=== PATIENT | male | born 1965 | race Caucasian/White ===

== ENCOUNTER 2025-03-01 09:38 | Observation (INO) ==
--- NOTE | 2025-02-16 11:39 | Anesthesiology Consultation ---
Date of Service February 16, 2025 Assessment & Plan (1) Encounter for pre-operative examination: - Per hammer smith on 02/16/25: No known infectious disease contacts, current infectious disease symptoms in past 10 days or COVID positive test result in the past 30 days. Chart Review Chart Review: Acceptable Risk for Surgery and Patient NOT seen in Pre Admission Testing History Surgery Operation Date: 03/01/25 07:30 Proposed Procedures p Robotic Assisted Laparoscopic Radical Retropubic Prostatectomy, Possible Open, Possible Pelvic Lymph Node Dissection - Adan Tenorio MD Height/Weight Height: 5 ft 10 in Weight: 81.647 kg Allergies Allergy/AdvReac Type Severity Reaction Status Date / Time No Known Allergies Allergy Verified 02/16/25 10:54 Medications Home Medications Medication Instructions Recorded Confirmed Last Taken sildenafil 100 mg tablet 100 mg PO DAILY PRN sexual 06/07/24 02/16/25 Unknown activity #20 tabs gemfibrozil 600 mg tablet 600 mg PO BID 12/20/24 02/16/25 Unknown lisinopril 2.5 mg tablet 2.5 mg PO BID 12/20/24 02/16/25 Unknown krill 1 cap PO DAILY 02/16/25 02/16/25 Unknown [id number] 300 mg-90 mg-24 mg-50 mg capsule (krill oil) multivitamin 1 tab PO QAM 02/16/25 02/16/25 Unknown Past Medical History Medical History (Updated 02/16/25 @ 11:36 by Nasreen Triana PA-C) Hypertension Hypertriglyceridemia Prostate cancer dx ~2018, was monitoring with [facility] urology, and recently switched to [facility] [place] [facility] Past Family History Family History Other No family history of adverse response to anesthesia Past Surgical History Surgical History History of colonoscopy Hx of prostate biopsy with sedation Hx of vasectomy under local Social History Smoking Status: Never smoker Do You Dip or Chew Tobacco: No Hx Alcohol Use: Yes Alcohol type: beer alcohol intake frequency: 0-2 drinks per day Hx Substance Use: No substance use type: does not use Testing Laboratory Results 02/14/25 WBC: 4.7 H/H: 13/39 PLATELETS: 257,000 SODIUM: 134 POTASSIUM: 4.3 CHLORIDE: 101 CO2: 26 BUN: 10 CREATININE: 0.8 GLUCOSE: 118 Urine culture: no growth Electrocardiogram Date: 02/04/25 Sinus rhythm, rate 78 bpm Chest X-Ray Date: 02/04/25 No acute cardiopulmonary disease.
[~2025-03-01 09:38] MED LIST: DEXAMETHASONE SOD INJ 4 MG/ML VIAL ONE; GLYCOPYRROLATE 0.2 MG/ML VIAL ONE; KETAMINE HCL 10MG/ML SYR ONE; LIDOCAINE 2% 2 ML VIAL/AMP(20MG/ML) INFIL ONE; MIDAZOLAM HCL 1 MG/ML 2ML VIAL ONE; NOREPINEPHRINE BITARTRATE 1 MG/ML 4 ML VIAL IV ONE; ONDANSETRON INJ 2 MG/ML 2 ML VIAL ONE; PROPOFOL IV EMULSION 10 MG/ML 20 ML VIAL IV ONE; ROCURONIUM BROMIDE 10 MG/ML 5 ML VIAL IV ONE; SUGAMMADEX SODIUM 200 MG/2 ML VIAL IV ONE
[2025-03-01] MEDS: LACTATED RINGER'S 1,000 ML IV SCH ×2 (10:14→17:06)
[2025-03-01] MEDS: HEPARIN SOD 5,000 UNIT/0.5 ML VIAL SQ SCH ×2 (10:14→21:52)
--- NOTE | 2025-03-01 10:43 | History & Physical Bridge Note ---
Date of Service March 01, 2025 History & Physical Bridge Note I have examined the patient, reviewed the History & Physical and in the interval since the performance of the History & Physical I have noted the following changes of clinical significance: no changes noted
[2025-03-01] MEDS ORDERED: ATROPINE SULFATE 0.1 MG/ML 10ML SYR IV PRN (11:29)
[2025-03-01] MEDS ORDERED: ONDANSETRON INJ 2 MG/ML 2 ML VIAL IV PRN ×2 (11:29→16:28)
[2025-03-01] MEDS ORDERED: NOREPINEPHRINE BITARTRATE 1 MG/ML 4 ML VIAL IV ONE (12:02)
[2025-03-01] MEDS ORDERED: ROCURONIUM BROMIDE 10 MG/ML 5 ML VIAL IV ONE ×3 (12:02→13:32)
[2025-03-01] MEDS: SURGICEL ABSORB HEMOSTAT 2IN X 14IN TOP ONE (12:48)
[2025-03-01] MEDS: BUPIVACAINE 0.5 % 5 MG/1 ML MPF 30ML VIAL ONE (14:36)
[2025-03-01] MEDS: BUPIVACAINE LIPOSOME 1.3% 266 MG/20 ML VIAL ONE (14:37)
--- NOTE | 2025-03-01 15:04 | Operative Report ---
[facility] Post Operative Report Pre & Post Diagnosis Operation Date: 03/01/25 11:00 Pre-Op Diagnosis: Malignant Neoplasm of Prostate Post-Op Diagnosis: Malignant Neoplasm of Prostate I identified the patient and participated in the time-out.: Yes Procedure Operation Date: 03/01/25 11:00 Actual Procedures p Robotic Assisted Laparoscopic Radical Retropubic Prostatectomy, Pelvic Lymph Node Dissection(Not Applicable) - Adan Tenorio MD Surgeon Adan Tenorio MD Associate Professor Of Geography Lena Stephenson Estimated Blood Loss 100 Findings Consistent with Post-Op Diagnosis Specimens 1. Periprostatic fat 2. Left pelvic lymph nodes 3. Right pelvic lymph nodes 4. Prostate and seminal vesicles 5/6/7. Bladder neck - posterior, left, and distal Description of Procedure The patient was identified in the preoperative holding area, appropriate informed consents were reviewed and completed, and he was transported to the operating suite. Subcutaneous heparin was administered in the pre-operative holding area. Upon arrival in the operating suite, he received appropriate antibiotics and general anesthesia and was positioned supine and prepped in sterile fashion. A Mckeon catheter was inserted in the sterile field. A Veress needle was passed per umbilicus with uniform insufflation of the abdomen to 15mmHg. He was placed in 26 degrees of Trendelenburg. A periumbilical incision was then made to accommodate a robotic port and entry was made using a visual obturator. Inspection of the abdomen was carried out, and there was no evidence of traumatic entry or injury secondary to the Veress needle. After confirming a clear anterior abdominal wall, ports were subsequently placed in standard robotic prostatectomy fashion without incident. To begin the robotic portion of the case, the left lateral aspect of the sigmoid was mobilized off of the left pelvic side wall to allow the pouch of Jonathan to be appropriately visualized. I then made an incision in the pouch of Jonathan, overlying the seminal vesicles. Both SVs as well as the ampullae of the vasa were entirely dissected, with the vasa transected 3cm from the prostate. Of note, there was somewhat of a fibrotic reaction around the vasa and SV's which took a bit of meticulous dissection. Dissection posterior to the prostate was completed, splitting Denonvilliers' fascia. I did not quite reach the apex of the prostate but was able to create the initial plane. The medial umbilical ligaments were then controlled with bipolar electrocautery just inferior to the umbilicus. Following cauterization, they were divided utilizing monopolar cautery. A peritoneal incision was carried from this location to the medial aspect of the internal inguinal rings bilaterally with care to avoid opening through the ring. This incision was concluded when the vas deferens was reached. Dissection of the bladder and prostate off of the posterior aspect of the pubic arch was completed allowing full visualization of the prostate. The fat overlying the prostate was removed en bloc and passed off the table as a specimen labeled "periprostatic fat". The endopelvic fascia was cleared during this portion of the procedure, and subsequently opened - first on the right and then the left. The incision through the endopelvic fascia began near the prostate-bladder junction and was carried to the apex with extreme care to preserve all lateral levator musculature as well as the periurethral musculature and sphincter complex. I additionally preserved the puboprostatic l igaments. I then controlled the DVC with a 2-0 V-lock suture in overlapping/figure of 8 fashion. The lymph node dissection was then conducted. External iliac vessels were identified on the pelvic side wall. The packet of fat and lymphatic tissue that resides just under the iliac vein was elevated and off of the vein with a split and roll technique. The packet was dissected laterally to the circumflex vein and distally to the obturator nerve which was preserved. The proximal aspect of the packet was carried towards the bifurcation of the iliac vessels. A combination of monopolar and bipolar cautery were used to assist with control. After completing the dissection on both sides, the packets were collected and passed off of the table as specimens labeled "pelvic lymph nodes". My attention then returned to the prostate, with identification of the bladder neck aided by gentle traction on the Mckeon catheter and lateral to medial pressure at the presumed level of the bladder neck with the robotic instruments. An anterior cystotomy was made, the Mckeon balloon deflated and the catheter guided through the incision to allow anterior retraction. I attempted to preserve maximal bladder neck musculature as I circumferentially dissected around the bladder neck. After incision through the posterior aspect of the mucosa, the dissection was carried through detrusor muscle until the bilateral ampullae of the vasa were identified. The previously dissected vasa and SVs were brought through the incision and used to elevated the prostate anteriorly. Of note, there was some thickness to the posterior bladder neck that raise some concern that the prostate tissue had been left behind attached to the bladder neck. Initially I carried my dissection below the prostate and into an appropriate plane, however, this was noted with the plan to return to this prior to completing the anastomosis. An incision in the lateral prostatic fascia was then made bilaterally to faci litate control of the vascular pedicles and preservation of the nerve bundles. Vasculature running along the posterior/lateral aspect of the prostate was preserved as well as the tissue containing the nerves. The pedicles were then controlled with a series of Weck clips. The nerve spare was quite successful. The apical attachments of the prostate were remaining at that stage. The DVC was divided after control with bipolar cautery over the prostate. Continuous inspection from anterior and lateral views allowed me to closely follow the apical contour of the prostate and maximally preserve urethral length and tissue. The prostate was entirely freed at that point, and collected in an EndoCatch bag before being moved out of the field of vision. Hemostasis was obtained with directed suture ligation of any bleeding vessels along the neurovascular bundles utilizing 3-0 v-Lock suture. At this point, I was able to have a further inspection utilizing both the 0 and 30 degree lens of the posterior aspect of the bladder neck. There was some thickening of this tissue which implies to me that there may be some prostate tissue still adherent to the bladder itself. I carefully dissected this tissue off of the underlying detrusor muscle with very cautious dissection and inspection continuously to ensure that we were not encroaching into bladder mucosa or the ureters. Ultimately, this came off as 3-4 separate pieces. Although I initially labeled this as distal bladder neck margin, left bladder neck, posterior bladder neck,, further posterior bladder neck, I am uncertain that the exact locations are particularly relevant. At the conclusion of the resection of this tissue I felt that all suspicious prostate tissue had been removed. Anastomosis of the bladder and urethra was completed utilizing a double armed V-Lock stitch. The anastomosis came together extremely well. A new Mckeon catheter was inserted and the anastomosis tested with irrigation. There was no evidence of leak. A vanessa style stitch was placed bilaterally to functionally marsupialize the area of the lymph node dissection. The robot was undocked, the specimen extracted through expansion of the guillaume-um bilical camera port. The fascia was closed with a series of 0-PDS figure of 8 stitches. All skin incisions were closed with 4-0 monocryl. All incisions and muscle layers were anesthesized with a combination of marcaine and Exparel. The case was concluded and the patient taken to the PACU in stable condition. Lena Stephenson assisted from incision to closure. I attest to the content of the Intraoperative Record and any orders documented therein. Any exceptions are noted below.
--- NOTE | 2025-03-01 15:31 | Anesthesiology Progress Note ---
Date of Service March 01, 2025 Anesthesia Post Procedure Vital Signs Vital Signs: Temp Pulse Pulse Resp BP Pulse Ox O2 Del Method 03/01/25 15:20 87 18 161/94 H 94 Nasal Cannula 03/01/25 15:10 83 18 163/92 H 96 Oxymask 03/01/25 15:00 87 14 144/92 H 100 Oxymask 03/01/25 14:52 97.9 F 90 16 161/89 H 100 Oxymask 03/01/25 09:55 98.2 F 88 20 192/93 H 98 Room Air O2 Flow Rate 03/01/25 15:20 2 03/01/25 15:10 2 03/01/25 15:00 4 03/01/25 14:52 6 03/01/25 09:55 Pain Intensity Abdomen: Pain Intensity: 4 Transfer of Care Handoff Completed per policy Notes Mental Status: alert / awake / arousable and participated in evaluation Patient Amnestic to Procedure: Yes Nausea / Vomiting: adequately controlled Pain: adequately controlled Airway Patency, RR, SpO2: stable & adequate BP & HR: stable & adequate Hydration State: stable & adequate Anesthetic Complications: no major complications apparent and Pt Satisfied with anesthetic care
[2025-03-01 15:57] LABS: Hematocrit (blood only) 39.4 % (42.0-52.0); Hemoglobin 13.6 g/dL (14.0-18.0); Mean Corpuscular Hemoglobin 32.5 pg (25.0-34.0); Mean Corpuscular Volume 94.3 fL (80.0-100.0); Platelet Count 231 K/uL (130-400); RDW Standard Deviation 39.5 fL (36.4-46.3); Red Blood Count 4.18 M/uL (4.70-6.10); White Blood Count 11.33 K/ul (4.8-10.8)
[2025-03-01 16:14] LABS: Anion Gap 7.0 (3-11); Blood Urea Nitrogen 12.0 mg/dl (6-23); Calcium 8.8 mg/dl (8.6-10.3); Carbon Dioxide 27.0 mmol/L (21-32); Chloride 101.0 mmol/L (98-107); Creatinine Clr Calc Pharmacy 95.4 ml/min; Glucose 153.0 mg/dl (70-99(Fasting)); Immature Granulocytes # (auto) 0.04 K/uL (0.01-0.20); Immature Granulocytes % (auto) 0.4 %; Potassium 4.6 mmol/L (3.5-5.1); Sodium 135.0 mmol/L (136-145)
[2025-03-01] MEDS: MoRPHine SULFATE 2 MG/ML CARP IV PRN (16:57)
[2025-03-01] MEDS: DOCUSATE SODIUM 100 MG CAP PO SCH (21:52)
[2025-03-02 03:25] VITALS: RESP 16; O2SAT 97
[2025-03-02 06:59] LABS: Hematocrit (blood only) 34.4 % (42.0-52.0); Hemoglobin 12.1 g/dL (14.0-18.0); Immature Granulocytes # (auto) 0.03 K/uL (0.01-0.20); Immature Granulocytes % (auto) 0.4 %; Mean Corpuscular Hemoglobin 33.2 pg (25.0-34.0); Mean Corpuscular Volume 94.5 fL (80.0-100.0); Platelet Count 221 K/uL (130-400); RDW Standard Deviation 39.8 fL (36.4-46.3); Red Blood Count 3.64 M/uL (4.70-6.10); White Blood Count 7.56 K/ul (4.8-10.8)
[2025-03-02 07:31] LABS: Anion Gap 7.0 (3-11); Blood Urea Nitrogen 11.0 mg/dl (6-23); Calcium 8.5 mg/dl (8.6-10.3); Carbon Dioxide 28.0 mmol/L (21-32); Chloride 100.0 mmol/L (98-107); Creatinine Clr Calc Pharmacy 90.1 ml/min; Glucose 113.0 mg/dl (70-99(Fasting)); Potassium 4.4 mmol/L (3.5-5.1); Sodium 135.0 mmol/L (136-145)
--- NOTE | 2025-03-02 08:28 | Urology Progress Note ---
Date of Service March 02, 2025 Assessment & Plan (1) Prostate cancer: Plan Prostate cancer status post prostatectomy yesterday Ambulate DC home later today Progressing appropriately Admission and Anticipated Discharge Date Admission Date: March 01, 2025 Subjective No major issues or night He is ambulatory Is feeling relatively well Has not yet passed flatus and feels some pressure in the rectal area that is his current biggest complaint Labs are stable Urine output okay Physical Exam Physical Exam: Abdomen soft, incisions appropriate Urine clear Results & Data Vital Signs (Past 12 Hours) Vital Signs Temp Pulse Resp BP BP Pulse Ox O2 Del Method 03/02/25 07:11 36.7 C 74 16 150/78 H 97 Room Air 03/02/25 03:24 36.7 C 77 16 135/74 97 Room Air 03/01/25 23:46 36.8 C 81 20 136/81 96 Room Air 03/01/25 21:50 37.0 C 66 16 156/79 H 96 Room Air PG Care Time/CCT Total # of Minutes Spent Total Time Spent with Patient: Total time spent is greater than 50% in coordination of care (as documented) at patient's floor/unit and/or counseling patient: Coding Level of Care Code None Diagnoses Prostate cancer C61
[2025-03-02] MEDS: ACETAMINOPHEN 325 MG TAB PO PRN (08:36)
[2025-03-02 11:18] VITALS: BP 135/74; PULSE 69; TEMP 98.2
--- NOTE | 2025-03-04 12:29 | Discharge Summary ---
Date of Service March 04, 2025 Admission HPI Per Admitting Provider 59-year-old male with prostate cancer who presented for robotic prostatectomy Admission Exam Per Admitting Provider Constitutional well developed and well nourished; no acute distress Eyes no conjunctival abnormality Neck normal visual inspection Respiratory normal respiratory effort; no respiratory distress Cardiovascular Extremities: no edema Musculoskeletal Gait: normal gait Neurologic awake; not confused Psychiatric A+Ox3, euthymic affect Principal Diagnosis Prostate cancer Discharge Exam Constitutional well developed and well nourished; no acute distress Respiratory normal respiratory effort; no respiratory distress and no labored breathing Musculoskeletal Head/Neck/Chest: normocephalic Skin no rashes, warm and dry Neurologic moves all extremities and awake Psychiatric A+Ox3, euthymic affect Genitourinary Mckeon catheter intact Discharge Data Allergies Allergy/AdvReac Type Severity Reaction Status Date / Time No Known Allergies Allergy Verified 03/01/25 09:53 Procedures Performed Operation Date: 03/01/25 11:00 Actual Procedures p Robotic Assisted Laparoscopic Radical Retropubic Prostatectomy, Pelvic Lymph Node Dissection(Not Applicable) - Adan Tenorio MD Hospital Course (1) Prostate cancer: Plan 59-year-old male admitted status post robotic prostatectomy with Dr. Tenorio. Patient tolerated procedure well. No acute issues postoperatively. He remained afebrile and hemodynamically stable. Labs appropriate. He tolerated a diet. Ambulated without issue. Reported minimal pain. Mckeon catheter draining adequately with clear yellow urine. He was discharged home on postop day #1 with a Mckeon catheter in place. He was in stable condition at time of discharge. Discharge instructions were reviewed and all questions were answered. Total Time Total Time Spent Total Time Spent (In Minutes): 15 Discharge Plan Discharge Items Patient Disposition: Home - Self-Care Reason For Visit: Malignant Neoplasm of Prostate Discharge Diagnosis: Prostate Cancer Activity: Per Instructions section Non-emergency contact: Surgeon and Urologist Call non-emergency contact if: you have any medication questions, your symptoms worsen, your pain is not controlled, you have a fever, your wound has increased redness, your wound has increased drainage and your wound pain has increased Follow-up/Referrals: Adan Tenorio MD [Physician] - Brijesh Willis D.O. [Primary Care Provider] - [facility],Nurse [FAKE FOR SCHEDULES] - Diet: Regular Addtl Attending Provider Instructions: Please take all medications as prescribed and keep all follow-ups as scheduled. Please call our office at [phone] with any questions, concerns or need to reschedule appointments for any reason. We are happy to assist you We have sent an antibiotic to your pharmacy of choice. Please begin antibiotic as prescribed the day BEFORE your scheduled voiding trial at [facility]. Please continue antibiotic every 12 hours through the day AFTER your voiding trial. Activity: We recommend having someone with you for the first few days after surgery to help care for you. For the first 2 weeks after surgery, we would like you to get up and walk around your house. However, we recommend limit physical activity that would increase your heart rate. This will allow your body to rest and heal. Take naps if you feel tired. Don't lift anything heavier than 10 pounds, mow the law or ride a bicycle until your follow-up appointment. Please avoid long car rides. Home Care: Unless directed otherwise, drink 6 to 8 glasses of water a day (enough to keep your urine light colored). This will also help keep a healthy flow of urine. We recommend using a stool softener for the first two weeks to avoid constipation. Mckeon Catheter or Suprapubic Catheter care: Keep the catheter well secured with either a leg back or leg strap with large bag. Empty your bag when it's about half full. You may notice some blood in the bag. This is normal after surgery and while the catheter is in place. Use mild soap (such as Dove or Dial) and water to wash the catheter and the head of your penis daily, or more frequently if needed. Return to your normal diet, we encourage good protein intake to promote healing. You may shower as normal. Please avoid tub baths or soaking until catheter removed and incisions well healed. Wearing sweat pants while you have the catheter is recommended, they will be more comfortable. Follow-up Your follow up appointments for having your catheter removed, and follow up with your physician should already be scheduled. If you have any questions regarding this, please contact our office. Your final pathology report will be discussed at your physician follow-up appointment. Call [facility] at [phone] right away if you have any of the following: Chest pain or trouble breathing (call 911 or go to the hospital) Fever of 101F or higher, uncontrolled vomiting Heavy bleeding, clots, or bright red blood from the catheter Catheter that falls out or stops draining Foul-smelling discharge from your catheter Redness, swelling, warmth, or increased pain at your incision site Drainage, pus, or bleeding from your incision Pending Studies at Discharge: Yes (pathology) Stand-Alone Forms: My [facility] [place] [facility], Smoking Cessation Medications and DC Order Prescriptions: New ciprofloxacin HCl 500 mg tablet 500 mg PO BID 3 Days Qty: 6 0RF Rx Instructions: Start 1 day prior to catheter removal Continued sildenafil 100 mg tablet 100 mg PO DAILY PRN (Reason: sexual activity) Qty: 20 11RF Rx Instructions: administer 30 minutes to 4 hours before activity gemfibrozil 600 mg tablet 600 mg PO BID lisinopril 2.5 mg tablet 2.5 mg PO BID multivitamin Tablet 1 tab PO QAM [id number] [krill oil] 820-60-10-50 mg Capsule 1 cap PO DAILY Discharge Orders: Discharge Order (Routine); Ordered 03/02/25 Ordered By: Lena Call/Other Patient Handouts: Urinary Catheter Bag Empty Clean, Indwelling Urinary Catheter Dc, Leg Bag Care Dc Admission Data Admit Date/Time: 03/01/25 15:02 Attending Provider: Adan Tenorio Admit Provider: Adan Tenorio Primary Care Provider: Brijesh Willis Other Interventions: Discharge Summary Assessment (RN) Last Done: 03/02/25 12:43 Coding Level of Care Code 83790 IN/OBS DISCH 30 MIN/LESS Diagnoses Prostate cancer C61
== END 2025-03-02 13:06 | disposition home or self-care (01) ==
LOC: ASU 09:38 → 3E 15:02 → INTOOBSV 15:02